=== PATIENT | female | born 1975 | race Hispanic/Latino ===

== ENCOUNTER → 2018-07-23 13:10 | Outpatient (CLI) | payer OTHER, SELFPAY ==
--- NOTE | 2018-07-23 | DI.RAD.S_ITS ---
PROCEDURE: XR PELVIS 1-2V INDICATIONS: SCIATICA/LOW BACK PAIN/PELVIC PAIN TECHNIQUE: Single view(s) of the pelvis acquired. COMPARISON: None. FINDINGS: Bones: No fractures or dislocations. No suspicious bony lesions. Mild osteophytic changes are noted in bilateral sacroiliac joints. No evidence of ankylosis. Soft tissues: Visualized bowel gas pattern is normal. No suspicious soft tissue calcifications. IMPRESSION: Mild bilateral sacroiliac joint osteoarthritic changes. Pelvic ring is intact. No fracture or dislocation. Dictated by: Los Reyes M.D. on 07/23/2018 at 14:43 Approved by: Los Reyes M.D. on 07/23/2018 at 14:43
--- NOTE | 2018-07-23 | DI.RAD.S_ITS ---
PROCEDURE: XR LUMBAR SPINE 2-3V INDICATIONS: SCIATICA/LOW BACK PAIN/PELVIC PAIN TECHNIQUE: 3 views of the lumbar spine were acquired. COMPARISON: None. FINDINGS: Bones: 5 [id number] vertebrae are present. There is normal bony alignment. No vertebral body compression fractures. No suspicious bony lesions. Soft tissues: Overlying bowel gas pattern is normal. No suspicious soft tissue calcifications. IMPRESSION: Unremarkable radiographic examination of lumbar spine. Dictated by: Los Reyes M.D. on 07/23/2018 at 14:43 Approved by: Los Reyes M.D. on 07/23/2018 at 14:45
== END ==
PROVIDERS: PCP Family Medicine; Visit Provider Family Medicine
DX: M54.40 Lumbago with sciatica, unspecified side (principal); R10.2 Pelvic and perineal pain; M47.818 Spondylosis without myelopathy or radiculopathy, sacral and sacrococcygeal region; M25.859 Other specified joint disorders, unspecified hip
CPT/HCPCS: 72100; 72170